=== PATIENT | male | born 1975 | race Caucasian/White ===

== ENCOUNTER 2020-05-20 06:50 | Emergency (ER) | payer OTHER, SELFPAY ==
[2020-05-20 07:00] VITALS: BP 144/99; PULSE 83; RESP 17; TEMP 37; O2SAT 98; BMI 31.3
--- NOTE | 2020-05-20 07:14 | ED_ITS ---
HPI - Headache General Chief Complaint: Headache Stated Complaint: exposure to covid Time Seen by Provider: 05/20/20 07:04 Source: patient Mode of arrival: Ambulatory Limitations: no limitations History of Present Illness HPI Narrative: Patient is an otherwise healthy 44-year-old male here for COVID- 19 testing. Patient states that approximately 7 days ago he was with an individual who the patient states ?tested positive ?he is unsure is exactly how long he was around this individual. He woke up this morning with headache and sore throat some sinus congestion. He states that he took his temperature at home and it was ?a little elevated ?given emergency department for testing. Related Data Allergies Allergy/AdvReac Type Severity Reaction Status Date / Time No Known Drug Allergies Allergy Verified 05/20/20 07:01 Review of Systems Constitutional Constitutional: Reports headache(s) ENT Ears, Nose, Mouth, and Throat: Reports headache(s) Comments: Sinus congestion Cardiovascular Cardiovascular: Denies chest pain and Denies dyspnea Respiratory Respiratory: Denies dyspnea Gastrointestinal Gastrointestinal: Denies nausea and Denies vomiting Integumentary/Breasts Skin/Breast: Denies rash Neurologic Neurologic: Reports headache(s) Hematologic/Lymphatic Hematologic/Lymphatic: Denies easy bleeding and Denies easy bruising Patient History Medical History Healthy adult (Acute) Social History Smoking Status: Never smoker Smoking Status: Never smoker alcohol intake frequency: 0-2 drinks per day Substance Use Type: does not use Exam Initial Vital Signs Initial Vital Signs: Vital Signs Temperature 98.6 F 05/20/20 07:00 Pulse Rate 83 05/20/20 07:00 Respiratory Rate 17 05/20/20 07:00 Blood Pressure 144/99 H 05/20/20 07:00 Pulse Oximetry 98 05/20/20 07:00 Const General: cooperative and comfortable Limitations: mental status not altered HENMT Head: normal to inspection and normocephalic Mouth: oral mucosae normal and moist mucous membranes Teeth and gingiva: dentition normal Throat: posterior oropharynx normal Resp Effort & Inspection: normal respiratory effort Auscultation: clear to auscultation bilaterally Cardio Rate: regular rate Rhythm: regular rhythm Neuro General: patient alert and patient awake Cognition: normal cognition Extrem General: capillary refill normal Psych Appearance: grossly normal and well kempt Course Orders Ordered: ED Orders 05/20/20 07:17 COVID19 -ED/INPAT/OR/L&D Stat Vital Signs Vital signs: Vital Signs - 8 hr 05/20/20 07:00 Temperature 98.6 F Pulse Rate 83 Respiratory Rate 17 Blood Pressure 144/99 H Pulse Oximetry 98 MDM - Headache Lab Data Attestation: I reviewed the patient's lab results. Labs: Lab Results 05/20/20 Range/Units 07:17 COVID-19 PCR Negative (Negative) MDM Narrative Medical decision making narrative: Nontoxic, coronavirus negative, patient i nformed of this, he was given paperwork for his work. Is given return precautions. Expressed understanding. Discharge Plan Departure Patient Disposition: Home Clinical Impression: Sinus congestion Headache Qualifiers: Headache type: unspecified Headache chronicity pattern: unspecified pattern Intractability: not intractable Qualified Code(s): R51.9 - Headache, unspecified Instructions: Coronavirus Disease 2019 Activity Restrictions/Additional Instructions: Your coronavirus test was negative. Recommend that you take Tylenol for any headaches or fevers. Return to the emergency department for any new or worsening symptoms
[2020-05-20 07:39] LABS: COVID19 -Nasal RAPID Negative (Negative)
== END 2020-05-20 08:00 | disposition home or self-care (01) ==
PROVIDERS: Emergency Provider Emergency Medicine
DX: R09.81 Nasal congestion (principal); R51.9 Headache, unspecified
CPT/HCPCS: 87635; 99281; 99282

== ENCOUNTER 2021-07-26 07:34 | Emergency (ER) | payer OTHER, SELFPAY ==
[2021-07-26 07:35] VITALS: BP 144/95; PULSE 95; RESP 18; TEMP 36.7; O2SAT 95; BMI 30.4
--- NOTE | 2021-07-26 07:45 | ED.GENADULT ---
HPI - General Adult General Stated complaint: Metal hit in face. knocked out teeth Time Seen by Provider: 07/26/21 07:39 Source: patient Mode of arrival: Ambulatory Limitations: no limitations History of Present Illness HPI narrative: Patient is a 45-year-old male. Was at work this morning. He states he was cutting metal on a band saw. He states that the metal came up and hit him in the face. He did sustain a cut to his lower lip and injured his upper teeth. No vision changes. No nasal symptoms. No problems swallowing. No problems breathing. Related Data Previous Rx's Medication Instructions Recorded tramadol 50 mg tablet 50 mg PO Q8H PRN #9 tab 07/26/21 Allergies Allergy/AdvReac Type Severity Reaction Status Date / Time No Known Drug Allergies Allergy Verified 05/20/20 07:01 Review of Systems Constitutional Constitutional: Reports system reviewed and no additional complaints, except as documented Eyes Eyes: Reports system reviewed and no additional complaints, except as documented ENT Ears, Nose, Mouth, and Throat: Reports system reviewed and no additional complaints, except as documented Integumentary/Breasts Skin/Breast: Reports system reviewed and no additional complaints, except as documented Hematologic/Lymphatic On Anticoagulants: No Patient History Medical History (Updated 07/26/21 @ 07:54 by Vasquez Medina DO) Healthy adult Social History Smoking Status: Never smoker Smoking Status: Never smoker alcohol intake frequency: 0-2 drinks per day Substance Use Type: does not use Exam Const General: cooperative and healthy appearing HENMA Ears: hearing grossly normal bilaterally Nose: external nose normal Face and sinus: normal facial exam, sinuses nontender and face symmetric Mouth: tongue normal, moist mucous membranes and lip abnormal (1 cm curved laceration to the lower lip it does not cross the border.) Teeth and gingiva: other (Crack to tooth 8, chip with cracked tooth 9) Eyes General: appearance normal, both eyes and all related structures Skin Other: Cut to lower lip otherwise no other skin changes Neuro General: patient alert and patient awake Medical Decision Making MDM Narrative Medical decision making narrative: Patient did sustain a laceration to his lower lip that needs no intervention here in the ER. Does not cross the [place] border. We did discuss the home care of this and I suspect that it will heal without issue. His teeth are not loose. Lower teeth appear to have no injuries. Tooth 8. He is cracked however it is solid. Tooth 9 is cracked with a portion of it missing. It is solid. There does not appear to be [place] involved. There was no bleeding. I feel that we can hold on further workup to include any x-rays. No nasal symptoms. No eye symptoms. Low suspicion for closed head injury. Patient was informed that he does need to follow-up with dentist. We did discuss soft diet. Discharge Plan Departure Patient Disposition: Home Clinical Impression: Fracture of tooth Instructions: DI for Fractured Tooth, DI for Minor Laceration Activity Restrictions/Additional Instructions: You will ultimately need follow-up with a dentist. Until that you can take ibuprofen for discomfort and use the pain medication that you were given as needed for breakthrough pain. The cut on your lower lip will heal. I do recommend placing ice over the area. I also recommend a soft diet for the next couple days. Return to the emergency department for any new or worsening symptoms Prescriptions: New tramadol 50 mg tablet 50 mg PO Q8H PRN (Reason: pain) Qty: 9 0RF Referrals: Jyothi Maciel MD [Primary Care Provider] -
== END 2021-07-26 08:04 | disposition home or self-care (01) ==
PROVIDERS: Emergency Provider Emergency Medicine; PCP Family Medicine
DX: S02.5XXA Fracture of tooth (traumatic), initial encounter for closed fracture (principal); S01.511A Laceration without foreign body of lip, initial encounter; W20.8XXA Other cause of strike by thrown, projected or falling object, initial encounter; Y99.0 Civilian activity done for income or pay
CPT/HCPCS: 99281